=== PATIENT | female | born 1960 | race Caucasian/White ===

== ENCOUNTER 2022-10-26 08:13 | Day surgery (SDC) | payer OTHER ==
[2022-10-26] MEDS ORDERED: LIDOCAINE 2% 1000 MG/50 ML VIAL INJ ONE (13:22)
== END 2022-10-26 15:22 | disposition home or self-care (01) ==
LOC: MMU 08:13 → MDS 08:13
PROVIDERS: ATTEND Internal Medicine Gastroenterology
DX: K75.81 Nonalcoholic steatohepatitis (NASH) (principal); I10 Essential (primary) hypertension; E11.9 Type 2 diabetes mellitus without complications; E78.00 Pure hypercholesterolemia, unspecified
CPT/HCPCS: 47000; 76942; J2001; Q0092